=== PATIENT | female | born 1965 | race African-American/Black ===

== ENCOUNTER 2019-01-20 10:45 | Inpatient (IN) | payer OTHER ==
[~2019-01-20] VITALS: Ht 167.6 cm; Wt 76.3 kg
[2019-01-20] MEDS ORDERED: ONDANSETRON HCL 4MG/2ML INJ IV STA (11:30)
[2019-01-20] MEDS ORDERED: MORPHINE SULFATE 4 MG/ML CPJ (NOT FOR IM USE) IV STA (11:30)
[2019-01-20] MEDS ORDERED: ASPIRIN 81MG TABLET PO ONE (11:30)
[2019-01-20] MEDS ORDERED: NITROGLYCERIN OINT 1GM/INCH UDPKT TD ONE (11:30)
[2019-01-20 11:46] LABS: CHLORIDE 110 mEq/L (98-107)
[2019-01-20 11:48] LABS: BASOPHILS % 0.5 % (0.0-2.0); EOSINOPHILS % 1.4 % (0.0-5.0); HEMATOCRIT. 37.7 % (36.0-48.0); HEMOGLOBIN. 12.8 g/dL (12.0-16.0); LYMPHOCYTES % 28.5 % (20.0-50.0); MEAN CORPUSCULAR VOLUME 93.9 fL (81.0-99.0); MEAN PLATELET VOLUME 8.6 fl (7.4-10.4); MONOCYTES % 8.7 % (2.0-8.0); NEUTROPHILS % 60.9 % (40.0-76.0); PLATELET 270 x1000/uL (130-400); RED BLOOD CELL COUNT 4.02 mill/uL (4.2-5.4); RED CELL DISTRIBUTION WIDTH 13.4 % (11.6-14.6)
[2019-01-20 11:49] LABS: PARTIAL THROMBOPLASTIN TIME 26.5 sec (23.4-31.0); PROTHROMBIN TIME 10.8 sec (9.6-11.0)
[2019-01-20 14:00] VITALS: BP 105/65
[2019-01-20] MEDS ORDERED: ACETAMINOPHEN 325MG TABLET PO PRN (14:15)
[2019-01-20] MEDS ORDERED: HYDROCODONE/ACETAMINOPHEN 5/325MG TABLET PO PRN (14:15)
[2019-01-20 16:00] VITALS: BP 105/57
[2019-01-20] MEDS: ENOXAPARIN 40MG/0.4ML SYR SUBCUT SCH (16:21)
[2019-01-20 19:53] LABS: *AMPHETAMINES SCREEN URINE NEGATIVE (NEGATIVE); *BARBITURATES SCREEN URINE NEGATIVE (NEGATIVE)
[2019-01-20 19:54] LABS: *BENZODIAZEPINES SCREEN URINE NEGATIVE (NEGATIVE); *COCAINE SCREEN URINE NEGATIVE (NEGATIVE); CANNABINOID URINE SCREEN PRESUMTIVE POSITIVE (NEGATIVE); METHADONE URINE SCREEN NEGATIVE (NEGATIVE); OPIATES URINE SCREEN PRESUMTIVE POSITIVE (NEGATIVE); PHENCYCLIDINE URINE SCREEN NEGATIVE (NEGATIVE)
[2019-01-20 20:00] VITALS: BP 104/56
[2019-01-20 23:42] LABS: CREATINE KINASE 116 IU/L (26-192); CREATINE KINASE MB FRACTION < 1.0 ng/mL (0.5-3.6)
[2019-01-21] VITALS: BP 109/52
[2019-01-21 04:00] VITALS: BP 113/58
[2019-01-21 07:45] LABS: BASOPHILS % 0.6 % (0.0-2.0); EOSINOPHILS % 2.3 % (0.0-5.0); HEMATOCRIT. 36.5 % (36.0-48.0); HEMOGLOBIN. 12.3 g/dL (12.0-16.0); LYMPHOCYTES % 32.4 % (20.0-50.0); MEAN CORPUSCULAR HEMOGLOBIN 31.8 pg (28.0-32.0); MEAN CORPUSCULAR VOLUME 94.6 fL (81.0-99.0); MEAN PLATELET VOLUME 9.2 fl (7.4-10.4); MONOCYTES % 9.7 % (2.0-8.0); PLATELET 238 x1000/uL (130-400); RED BLOOD CELL COUNT 3.86 mill/uL (4.2-5.4); RED CELL DISTRIBUTION WIDTH 13.5 % (11.6-14.6)
[2019-01-21 08:00] VITALS: BP 106/46
[2019-01-21] MEDS ORDERED: REGADENOSON 0.4 MG/5 ML IV SCH (08:00)
[2019-01-21] MEDS: ENOXAPARIN 40MG/0.4ML SYR SUBCUT SCH (08:31)
[2019-01-21 08:45] LABS: CHLORIDE 111 mEq/L (98-107)
[2019-01-21] MEDS ORDERED: ASPIRIN 81MG TABLET PO SCH (09:00)
[2019-01-21 09:09] LABS: CREATINE KINASE 104 IU/L (26-192); LDL CHOLESTEROL 71 mg/dL (5-100)
[2019-01-21 09:11] LABS: HDL CHOLESTEROL 56 mg/dL (40-59)
[2019-01-21 09:21] LABS: CREATINE KINASE MB FRACTION < 1.0 ng/mL (0.5-3.6)
[2019-01-21] MEDS ORDERED: REGADENOSON 0.4 MG/5 ML IV ONE (10:16)
[2019-01-21 12:00] VITALS: BP 138/54
== END 2019-01-21 14:55 | disposition left against medical advice (07) | DRG 313 ==
LOC: ER 10:45 → 5WST 12:01 → EDBEDREQ 12:03 → ENRESERV 12:39
PROVIDERS: ADMIT Internal Medicine; ATTEND Internal Medicine
DX: R07.89 Other chest pain (principal); F17.200 Nicotine dependence, unspecified, uncomplicated; Z82.49 Family history of ischemic heart disease and other diseases of the circulatory system
CPT/HCPCS: 36415; 71045; 78452; 80048; 80061; 80305; 82550; 82553; 83036; 83735; 83880; 84443; 84484; 93005; 93017; 93306; 96374; 96375; 99285; A9500; J1650; J2270; J2405; J2785